=== PATIENT | male | born 1995 | race Caucasian/White ===

== ENCOUNTER 2018-04-10 22:32 | Emergency (ER) | payer OTHER ==
[2018-04-10 22:39] VITALS: BP 109/70; PULSE 73; TEMP 98; BMI 21.3
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
[2018-04-10] MEDS ORDERED: IBUPROFEN 600 MG TABLET (FP) PO ONE ×2 (22:47→22:50)
== END 2018-04-10 23:24 | disposition home or self-care (01) ==
LOC: FER 22:32
DX: H57.10 Ocular pain, unspecified eye (principal); S16.1XXA Strain of muscle, fascia and tendon at neck level, initial encounter; S39.012A Strain of muscle, fascia and tendon of lower back, initial encounter; V43.52XA Car driver injured in collision with other type car in traffic accident, initial encounter; Y93.89 Activity, other specified; Y92.410 Unspecified street and highway as the place of occurrence of the external cause
CPT/HCPCS: 72050-TC-FY; 72100-TC-FY; 99281-25